=== PATIENT | female | born 1965 | race Caucasian/White ===

== ENCOUNTER 2018-12-12 15:51 | Inpatient (IN) | payer BC, MEDICAID ==
[~2018-12-12] VITALS: Ht 162.6 cm; Wt 93.2 kg
[~2018-12-12 15:51] MED LIST: ALBU8.5H8 IH; PRED50TA PO; SYN0.088T PO
[2018-12-12] MEDS ORDERED: ipratropium/albuterol 3ml nebule NEB ONE (16:30)
[2018-12-12] MEDS ORDERED: normal saline 1000ML IV soln IVB ONE (16:30)
[2018-12-12] MEDS ORDERED: methylPREDNISolone sod succ 125mg/2ml vial IV ONE (16:30)
[2018-12-12 17:14] LABS: BASOPHILS # (AUTO) 0.1 X10'3 (0-0.2); BASOPHILS % (AUTO) 0.5 % (0-1); EOSINOPHILS # (AUTO) 0.7 X10'3 (0-0.9); EOSINOPHILS % (AUTO) 5.7 % (0-6); HEMATOCRIT 45.3 % (35.0-45.0); HEMOGLOBIN 15.1 g/dl (12.0-16.0); LYMPHOCYTES # (AUTO) 3.2 X10'3 (1.1-4.8); MEAN CORPUSCULAR HEMOGLOBIN 28.4 PG (27.0-31.0); MEAN CORPUSCULAR HGB CONC 33.3 g/dL (33.0-36.5); MEAN CORPUSCULAR VOLUME 85.4 FL (78-98); MEAN PLATELET VOLUME 7.3 FL (7.4-10.4); MONOCYTES # (AUTO) 0.7 X10'3 (0-0.9); MONOCYTES % (AUTO) 6.3 % (2-12); NEUTROPHILS # (AUTO) 7.2 X10'3 (1.8-7.7); NEUTROPHILS % (AUTO) 60.5 % (42-75); PLATELET COUNT 399 X10'3 (140-440); RED BLOOD COUNT 5.31 X10'6 (4.20-5.60); RED CELL DISTRIBUTION WIDTH 14.3 % (11.5-14.5); WHITE BLOOD COUNT 11.9 X10'3 (4.5-11.0)
[2018-12-12 17:24] LABS: ALANINE AMINOTRANSFERASE 27 U/L (12-78); ALBUMIN 3.8 G/DL (3.4-5.0); ALBUMIN/GLOBULIN RATIO 0.9 (1.1-1.5); ALKALINE PHOSPHATASE 126 IU/L (46-116); ANION GAP 13 (8-16); ASPARTATE AMINO TRANSFERASE 15 U/L (10-37); BILIRUBIN,TOTAL 0.4 MG/DL (0.1-1.0); BLOOD UREA NITROGEN 16 MG/DL (7-18); BUN/CREATININE RATIO 25.8 (6.6-38.0); CALCIUM 9.5 MG/DL (8.5-10.1); CHLORIDE 105 MMOL/L (99-107); CREATININE 0.62 MG/DL (0.40-0.90); GLUCOSE 96 MG/DL (70-104); POTASSIUM 3.5 MMOL/L (3.5-5.1); SODIUM 141 MMOL/L (135-145); eGFR > 90 ML/MIN
[2018-12-12] MEDS ORDERED: ERGO500054 PO (17:49)
[2018-12-12] MEDS ORDERED: ALBU18HF2 IH (17:49)
[2018-12-12] MEDS ORDERED: MONT10TA24 PO (17:49)
[2018-12-12] MEDS ORDERED: LEVO137T2 PO (17:49)
[2018-12-12] MEDS ORDERED: ESTR10TA9 VG (17:49)
[2018-12-12] MEDS ORDERED: ROSU10TA27 PO (17:49)
[2018-12-12] MEDS ORDERED: BUDE10.2 IH (17:49)
[2018-12-12] MEDS ORDERED: TIOT4MIS2 IH (17:49)
[2018-12-12] MEDS ORDERED: HYDR-3965 PO (17:49)
[2018-12-12] MEDS ORDERED: IPRA3AMP31 IH (17:49)
[2018-12-12] MEDS ORDERED: ondansetron/PF 4mg/2ml inj IV PRN (17:50)
[2018-12-12] MEDS ORDERED: acetaminophen 325mg tablet PO PRN (17:50)
[2018-12-12] MEDS ORDERED: mag hydrox/Alum hydrox/simeth 30ml oral suspension PO PRN (17:50)
[2018-12-12] MEDS ORDERED: magnesium hydroxide 30ml (MOM) UD suspension PO PRN (17:50)
[2018-12-12] MEDS ORDERED: morphine 4 MG/ML inj SYRINge IV PRN ×2 (17:50)
[2018-12-12] MEDS ORDERED: HYDROcodone/acetaminophen 5mg/325mg tablet PO PRN (17:55)
[2018-12-12] MEDS: levoFLOXACIN-Levaquin 750MG/D5 150 ML IV SCH (19:10)
[2018-12-12] MEDS: oxymetazoline 15 ML nasal spray NS SCH (19:10)
--- NOTE | 2018-12-12 19:19 | NUR ---
Patient complaining of lack of television in her room in the ED. Patient informed that getting a television in her room is not possible at this time. She states, "If I don't get a television or go upstairs soon I'm going to go to [facility]! I have anxiety!"
[2018-12-12] MEDS ORDERED: zolpidem 5mg tablet PO ONE (19:35)
[2018-12-12] MEDS: furosemide 20 MG/2 ML vial IV SCH (20:00)
[2018-12-12] MEDS: budesonide 0.5mg/2ml UD nebule IH SCH (20:59)
[2018-12-12] MEDS: ipratropium 0.5 MG/2.5ML nebule IH SCH (20:59)
--- NOTE | 2018-12-12 21:05 | NUR ---
Patient is highly anxious and agitated stating that she is leaving this hospital at 0900 if she is not in a bed upstairs. She states, "Its inhumane to leave people down here all night! I can't believe this! I used to work at [employer] and this is wrong!" I attempted to de-escalate the patient and re-assure her that our goal is to get her upstairs as soon as we can. She is also frustrated about her medications as the times of some of them are slightly different than her home regiment and she wants them all to be exact. Dr. Sena paged to try to accomodate her request. Patient is also agitated that she will be not be getting her inhaler. I explained to her that we do not have them in house and that she is getting a nebulizer treatment which is as effective, if not more. She is still displeased. Waiting for Dr. Sena to call back.
[2018-12-12] MEDS: montelukast 10mg tablet PO SCH (22:33)
[2018-12-12] MEDS: atorvastatin 20mg tablet PO SCH (22:33)
[2018-12-13] MEDS: methylPREDNISolone sod succ 125mg/2ml vial IV SCH ×4 (00:03→23:18)
--- NOTE | 2018-12-13 00:18 | NUR ---
Entered patient's room to administer solumedrol. Patient seems to be having visual hallucinations and believes that the vitals sign monitor is, "melting. Look there are purple clouds coming out of it." Neither of those things are happening. Patient's vital signs remain stable. Patient has no facial drooping, slurred speech, unilateral weakness, or other visual field changes. Will continue to closely monitor.
[2018-12-13] MEDS: oxymetazoline 15 ML nasal spray NS SCH ×6 (02:08→23:20)
[2018-12-13] MEDS: ipratropium 0.5 MG/2.5ML nebule IH SCH ×4 (02:25→19:51)
--- NOTE | 2018-12-13 02:27 | NUR ---
Patient resting comfortably in bed with no signs of distress. Patient complains of mild nausea. Zofran and crackers given. Patient no longer experiencing visual hallucinations.
[2018-12-13] MEDS: proCHLORperazine 10 MG/2 ml inj IV PRN ×2 (04:32→22:34)
[2018-12-13] MEDS: levoTHYROXINE 112mcg tablet PO SCH (07:46)
[2018-12-13] MEDS: levoTHYROXINE 25mcg tablet PO SCH (07:46)
[2018-12-13] MEDS: levoFLOXACIN-Levaquin 750MG/D5 150 ML IV SCH (07:47)
[2018-12-13] MEDS: furosemide 20 MG/2 ML vial IV SCH ×3 (07:48→20:13)
[2018-12-13] MEDS: enoxaparin 40mg/0.4ml syringe SUBCUT SCH (07:48)
[2018-12-13] MEDS: nitroGLYCERIN 0.4mg/hour patch TD SCH (07:55)
[2018-12-13] MEDS ORDERED: atorvastatin 20mg tablet PO SCH (08:00)
--- NOTE | 2018-12-13 08:45 | NUR ---
Received report from ED RN Jefferson, awaiting patient arrival to unit.
[2018-12-13 09:00] VITALS: BP 137/72
--- NOTE | 2018-12-13 09:00 | NUR ---
Pt arrived to unit in stable condition, 1L O2 via NC. Pt denies complaint. Oriented to room, call light in reach. Bed is low/locked/SRx2. Will continue to monitor.
[2018-12-13] MEDS: budesonide 0.5mg/2ml UD nebule IH SCH ×2 (09:14→19:51)
[2018-12-13 09:49] LABS: ALBUMIN 3.4 G/DL (3.4-5.0); ANION GAP 9 (8-16); BASOPHILS % (AUTO) 0.1 % (0-1); BLOOD UREA NITROGEN 16 MG/DL (7-18); BUN/CREATININE RATIO 20.5 (6.6-38.0); CALCIUM 9.3 MG/DL (8.5-10.1); CHLORIDE 105 MMOL/L (99-107); CREATININE 0.78 MG/DL (0.40-0.90); EOSINOPHILS % (AUTO) 0 % (0-6); GLUCOSE 172 MG/DL (70-104); HEMOGLOBIN 13.6 g/dl (12.0-16.0); LYMPHOCYTES # (AUTO) 1.3 X10'3 (1.1-4.8); LYMPHOCYTES % (AUTO) 10.1 % (21-51); MEAN CORPUSCULAR HEMOGLOBIN 28.3 PG (27.0-31.0); MEAN CORPUSCULAR HGB CONC 33.3 g/dL (33.0-36.5); MONOCYTES # (AUTO) 0.2 X10'3 (0-0.9); MONOCYTES % (AUTO) 1.4 % (2-12); NEUTROPHILS # (AUTO) 11.6 X10'3 (1.8-7.7); NEUTROPHILS % (AUTO) 88.4 % (42-75); PLATELET COUNT 388 X10'3 (140-440); POTASSIUM 4.2 MMOL/L (3.5-5.1); RED BLOOD COUNT 4.82 X10'6 (4.20-5.60); RED CELL DISTRIBUTION WIDTH 13.9 % (11.5-14.5); SODIUM 137 MMOL/L (135-145); TOTAL CARBON DIOXIDE 23.3 MMOL/L (24-32); WHITE BLOOD COUNT 13.2 X10'3 (4.5-11.0); eGFR 77 ML/MIN
[2018-12-13] MEDS: FLU VACC QUAD 2018(5 YR UP)/PF 60 MCG/0.5 ML SYRINGE IM ONE (10:10)
[2018-12-13 11:00] VITALS: BP 126/59
[2018-12-13] MEDS ORDERED: furosemide 20 MG/2 ML vial IV ONE (13:10)
--- NOTE | 2018-12-13 14:59 | NUR ---
PAGER ID: [phone] MESSAGE: [id number] Mike Bower/mary headache, requesting Tylenol, order is for fever only. Urine output 950mL. MARIELLA Leiva #[id number]. Addendum: 12/13/18 at 1515 by Janet Corral RN Received order for tylenol 650mg PO for headache and for IV Lasix 20mg BID.
[2018-12-13 15:00] VITALS: BP 110/54
[2018-12-13] MEDS: acetaminophen 325mg tablet PO PRN ×2 (16:02→22:33)
--- NOTE | 2018-12-13 18:10 | NUR ---
Problems reprioritized. Patient report given, questions answered & plan of care reviewed with MARIELLA Santos.
[2018-12-13 19:00] VITALS: BP 117/67
[2018-12-13] MEDS: lactobacillus rhamnosus 10,000 MMU CELLS/CAPSULE PO SCH (20:13)
[2018-12-13] MEDS: montelukast 10mg tablet PO SCH (21:31)
[2018-12-13] MEDS: atorvastatin 20mg tablet PO SCH (21:32)
[2018-12-13 23:00] VITALS: BP 120/68
[2018-12-14 03:00] VITALS: BP 114/71
[2018-12-14] MEDS: ipratropium 0.5 MG/2.5ML nebule IH SCH ×2 (03:10→09:11)
[2018-12-14 05:46] LABS: BASOPHILS % (AUTO) 0.1 % (0-1); EOSINOPHILS % (AUTO) 0 % (0-6); HEMATOCRIT 41.3 % (35.0-45.0); HEMOGLOBIN 13.7 g/dl (12.0-16.0); LYMPHOCYTES # (AUTO) 1.8 X10'3 (1.1-4.8); LYMPHOCYTES % (AUTO) 8.3 % (21-51); MEAN CORPUSCULAR HEMOGLOBIN 28.4 PG (27.0-31.0); MEAN CORPUSCULAR HGB CONC 33.2 g/dL (33.0-36.5); MEAN CORPUSCULAR VOLUME 85.7 FL (78-98); MEAN PLATELET VOLUME 7.3 FL (7.4-10.4); MONOCYTES # (AUTO) 0.5 X10'3 (0-0.9); MONOCYTES % (AUTO) 2.2 % (2-12); NEUTROPHILS % (AUTO) 89.4 % (42-75); PLATELET COUNT 429 X10'3 (140-440); RED BLOOD COUNT 4.82 X10'6 (4.20-5.60); RED CELL DISTRIBUTION WIDTH 14.1 % (11.5-14.5); WHITE BLOOD COUNT 21.3 X10'3 (4.5-11.0)
[2018-12-14 05:48] LABS: ALBUMIN 3.4 G/DL (3.4-5.0); ANION GAP 6 (8-16); BLOOD UREA NITROGEN 26 MG/DL (7-18); BUN/CREATININE RATIO 26.3 (6.6-38.0); CALCIUM 9.6 MG/DL (8.5-10.1); CHLORIDE 104 MMOL/L (99-107); CREATININE 0.99 MG/DL (0.40-0.90); GLUCOSE 147 MG/DL (70-104); POTASSIUM 4.3 MMOL/L (3.5-5.1); SODIUM 138 MMOL/L (135-145); TOTAL CARBON DIOXIDE 27.8 MMOL/L (24-32); eGFR 58 ML/MIN
[2018-12-14 06:00] VITALS: BP 114/71
--- NOTE | 2018-12-14 06:00 | NUR ---
Patient in room PCU 3014. I have received report from MARIELLA Santos and had the opportunity to ask questions and assume patient care.
--- NOTE | 2018-12-14 06:00 | NUR ---
Patient in room PCU 3014. I have received report from MARIELLA Santos and had the opportunity to ask questions and assume patient care.
--- NOTE | 2018-12-14 06:18 | NUR ---
Problems reprioritized. Patient report given, questions answered & plan of care reviewed with Abbie WOLFF. Addendum: 12/14/18 at 0620 by Danielle Willard RN Amended: Links added.
[2018-12-14] MEDS: levoTHYROXINE 25mcg tablet PO SCH (07:09)
[2018-12-14] MEDS: levoTHYROXINE 112mcg tablet PO SCH (07:09)
[2018-12-14] MEDS: nitroGLYCERIN 0.4mg/hour patch TD SCH (08:00)
[2018-12-14] MEDS: montelukast 10mg tablet PO SCH (08:00)
[2018-12-14] MEDS: enoxaparin 40mg/0.4ml syringe SUBCUT SCH (08:00)
[2018-12-14] MEDS ORDERED: LEVO750T46 PO (08:41)
[2018-12-14] MEDS ORDERED: FURO-150 PO (08:41)
[2018-12-14] MEDS ORDERED: PRED10TA23 PO (08:41)
[2018-12-14] MEDS: budesonide 0.5mg/2ml UD nebule IH SCH (09:11)
[2018-12-14] MEDS: furosemide 20 MG/2 ML vial IV SCH (09:35)
[2018-12-14] MEDS: atorvastatin 20mg tablet PO SCH (09:36)
[2018-12-14] MEDS: lactobacillus rhamnosus 10,000 MMU CELLS/CAPSULE PO SCH (09:36)
[2018-12-14] MEDS: oxymetazoline 15 ML nasal spray NS SCH (09:36)
[2018-12-14] MEDS: methylPREDNISolone sod succ 125mg/2ml vial IV SCH (09:37)
[2018-12-14] MEDS: FLU VACC QUAD 2018(5 YR UP)/PF 60 MCG/0.5 ML SYRINGE IM ONE (10:43)
[2018-12-14 11:00] VITALS: BP 135/87
[2018-12-14] MEDS ORDERED: levoFLOXACIN 750MG TABLET PO SCH (11:00)
--- NOTE | 2018-12-14 11:25 | NUR ---
Pt discharged in stable condition at this time. IV removed, catheter intact. Tele monitor removed. Ambulated to lobby with steady gait, sister is on her way, should arrive shortly. Care relinquished.
== END 2018-12-14 11:55 | disposition home or self-care (01) | DRG 140 ==
LOC: ER 15:51 → PCU 3S 12-13 09:24
PROVIDERS: ADMIT Internal Medicine; ATTEND Internal Medicine
DX: J44.0 Chronic obstructive pulmonary disease with (acute) lower respiratory infection (principal); J96.21 Acute and chronic respiratory failure with hypoxia; I27.81 Cor pulmonale (chronic); E03.9 Hypothyroidism, unspecified; E78.5 Hyperlipidemia, unspecified; J20.9 Acute bronchitis, unspecified; H35.30 Unspecified macular degeneration; J44.1 Chronic obstructive pulmonary disease with (acute) exacerbation; Z79.899 Other long term (current) drug therapy; Z80.1 Family history of malignant neoplasm of trachea, bronchus and lung; Z87.891 Personal history of nicotine dependence; Z90.710 Acquired absence of both cervix and uterus; Z98.891 History of uterine scar from previous surgery; Z23 Encounter for immunization; Z88.5 Allergy status to narcotic agent; Z88.2 Allergy status to sulfonamides
CPT/HCPCS: 36415; 71046; 71250; 80048; 80053; 83605; 83880; 85025; 87040; 87070; 93005; 93306; 94640; 94760; 96365; 96375; 99285; G0378; J0780; J1650; J1940; J1956; J2405; J2930; J7626; Q2037

== ENCOUNTER 2019-01-18 16:28 | Emergency (ER) | payer MEDICAID ==
[~2019-01-18] VITALS: Ht 162.6 cm; Wt 95.0 kg
[~2019-01-18 16:28] MED LIST changes: +ALBU18HF2 IH; -ALBU8.5H8 IH; +BUDE10.2 IH; +ERGO500054 PO; +ESTR10TA9 VG; +FURO-150 PO; +HYDR-3965 PO; +IPRA3AMP31 IH; +LEVO137T2 PO; +LEVO750T46 PO; +MONT10TA24 PO; -PRED50TA PO; +ROSU10TA27 PO; -SYN0.088T PO; +TIOT4MIS2 IH
[2019-01-18 17:05] VITALS: BP 136/97
[2019-01-18] MEDS ORDERED: methylnaltrexone br 12mg/0.6ml inj***SubQ only SQ ONE (18:10)
[2019-01-18] MEDS ORDERED: POLY17PO10 PO (18:16)
== END 2019-01-18 18:38 | disposition home or self-care (01) ==
LOC: ER 16:29
DX: K59.00 Constipation, unspecified (principal); Z90.710 Acquired absence of both cervix and uterus; Z90.89 Acquired absence of other organs; Z98.890 Other specified postprocedural states; Z88.1 Allergy status to other antibiotic agents; Z88.2 Allergy status to sulfonamides; Z88.5 Allergy status to narcotic agent; Z79.899 Other long term (current) drug therapy
CPT/HCPCS: 96372; 99283

== ENCOUNTER 2019-07-19 05:16 | Day surgery (SDC) | payer MEDICAID ==
[2019-07-11 11:10] LABS: BASOPHILS # (AUTO) 0.1 X10'3 (0-0.2); BASOPHILS % (AUTO) 0.5 % (0-1); EOSINOPHILS # (AUTO) 0.4 X10'3 (0-0.9); EOSINOPHILS % (AUTO) 3.8 % (0-6); LYMPHOCYTES # (AUTO) 2.9 X10'3 (1.1-4.8); LYMPHOCYTES % (AUTO) 25.1 % (21-51); MEAN CORPUSCULAR HEMOGLOBIN 29.5 PG (27.0-31.0); MEAN CORPUSCULAR VOLUME 86.7 FL (78-98); MEAN PLATELET VOLUME 7.2 FL (7.4-10.4); MONOCYTES # (AUTO) 0.9 X10'3 (0-0.9); MONOCYTES % (AUTO) 7.5 % (2-12); NEUTROPHILS # (AUTO) 7.3 X10'3 (1.8-7.7); NEUTROPHILS % (AUTO) 63.1 % (42-75); PRE OP HEMATOCRIT 45.8 % (35.0-45.0); PRE OP HEMOGLOBIN 15.6 g/dL (12.0-16.0); PRE OP PLATELET COUNT 422 X10'3 (140-440); RED BLOOD COUNT 5.28 X10'6 (4.20-5.60); RED CELL DISTRIBUTION WIDTH 14.5 % (11.5-14.5)
[2019-07-11 11:17] LABS: PRE OP PROTIME 10.3 SECONDS (9.0-12.0)
[2019-07-11 11:28] LABS: ALBUMIN 3.9 G/DL (3.4-5.0); ALBUMIN/GLOBULIN RATIO 0.8 (1.1-1.5); ALKALINE PHOSPHATASE 126 IU/L (46-116); BLOOD UREA NITROGEN 14 MG/DL (7-18); BUN/CREATININE RATIO 18.2 (6.6-38.0); CALCIUM 9.7 MG/DL (8.5-10.1); CHLORIDE 104 MMOL/L (99-107); CREATININE 0.77 MG/DL (0.40-0.90); PRE OP ALT 26 U/L (30-65); PRE OP ANION GAP 11 (8-16); PRE OP AST 14 U/L (10-37); PRE OP BILIRUB, TOTAL 0.4 MG/DL (0.0-1.0); PRE OP GLUCOSE 98 MG/DL (70-104); PRE OP POTASSIUM 3.9 MMOL/L (3.4-5.1); PRE OP SODIUM 139 MMOL/L (135-145); TOTAL CARBON DIOXIDE 24.4 MMOL/L (24-32); TOTAL PROTEIN 8.6 G/DL (6.4-8.2); eGFR 78 ML/MIN
[~2019-07-19] VITALS: Ht 162.6 cm; Wt 94.5 kg
[~2019-07-19 05:16] MED LIST changes: +BUDE0.256 NS; +CALC600T18 PO; -ESTR10TA9 VG; -FURO-150 PO; -IPRA3AMP31 IH; +LEVO5TAB29 PO; -LEVO750T46 PO; -ROSU10TA27 PO; +ROSU10TA28 PO; +cefazolin/dext.iso 2gm/50ml 50 ML IV ONE; +ringers solution, lacted 1,000 ML IV SCH
[2019-07-19 05:30] VITALS: BP 132/73
[2019-07-19] MEDS ORDERED: famotidine 20mg tablet PO ONE (05:30)
[2019-07-19] MEDS ORDERED: cefazolin/dext.iso 2gm/100 ML IV ONE (05:30)
[2019-07-19] MEDS ORDERED: cefazolin/dext.iso 2gm/50ml 50 ML IV ONE (05:30)
[2019-07-19] MEDS ORDERED: LIDOcaine 1% (10mg/ml) 2ml vial ONE (05:45)
[2019-07-19] MEDS ORDERED: BUPIVAcaine/PF 2.5mg/ml (0.25%) 10ml vial ONE (06:05)
[2019-07-19] MEDS ORDERED: LIDOcaine 0.5% (5mg/ml) 50ml vial ONE (07:29)
[2019-07-19] MEDS ORDERED: fentaNYL/PF 50MCG/1 ML 2ML syringe ONE ×2 (07:35→07:52)
[2019-07-19] MEDS ORDERED: midazolam 2 mg/2 ml injection ONE ×2 (07:35→07:45)
[2019-07-19 08:07] VITALS: BP 148/110
--- NOTE | 2019-07-19 08:07 | NUR ---
Received from OR via JESUS , accompanied by Anesthesiologist JOSELINE and report given by Anesthesiolgist. PATIENT WITH DRESSING TO RIGHT WRIST AND HAND THAT IS CDI. VSS. DENIES PAIN. + CAP REFILL AND MOVEMENT. Addendum: 07/19/19 at 0824 by Richard Perez RN, RN Amended: Links added.
[2019-07-19] MEDS ORDERED: ipratropium/albuterol 3ml nebule NEB SCH (08:15)
[2019-07-19 08:17] VITALS: BP 134/99
[2019-07-19] MEDS ORDERED: propofol inj 20 ML IV ONE (08:21)
[2019-07-19] MEDS ORDERED: labetalol 20mg/4ml (5mg/ml) syringe IV ONE (08:21)
[2019-07-19 08:27] VITALS: BP 172/109
[2019-07-19 08:37] VITALS: BP 135/88
[2019-07-19] MEDS ORDERED: meperidine/PF 25mg/ml syringe ONE (08:39)
[2019-07-19] MEDS ORDERED: meperidine/PF 25mg/ml syringe IV ONE (08:40)
[2019-07-19 08:47] VITALS: BP 142/90
--- NOTE | 2019-07-19 08:57 | NUR ---
ALL DC CRITERIA HAS BEEN MET. IV TAKEN OUT WITHOUT COMPLICATIONS. ALL INSTRUCTIONS COVERED AND ALL QUESTIONS ANSWERED. DRESSINGS CDI. OUT VIA WHEELCHAIR TO PERSONAL VEHICLE WHERE PATIENT WAS SECURED IN AND DRIVEN HOME BY FAMILY. ALL QUESTIONS ANSWERED. VSS. DRESSING CDI. PATIENT DRESSED SELF, AMBULATED AND VOIDED AND WAS DRIVEN HOME BY HER SON. Addendum: 07/19/19 at 0910 by Richard Perez RN, RN Amended: Links added.
== END 2019-07-19 08:57 | disposition home or self-care (01) ==
LOC: PAS 05:16
PROVIDERS: ATTEND Orthopaedic Surgery Hand Surgery
DX: M72.0 Palmar fascial fibromatosis [Dupuytren] (principal); E03.9 Hypothyroidism, unspecified; J44.9 Chronic obstructive pulmonary disease, unspecified; K21.9 Gastro-esophageal reflux disease without esophagitis; G89.29 Other chronic pain; E66.9 Obesity, unspecified; Z68.34 Body mass index [BMI] 34.0-34.9, adult; Z87.891 Personal history of nicotine dependence; Z98.890 Other specified postprocedural states; Z88.2 Allergy status to sulfonamides; Z88.5 Allergy status to narcotic agent; Z88.1 Allergy status to other antibiotic agents; Z79.899 Other long term (current) drug therapy; Z86.19 Personal history of other infectious and parasitic diseases; Z79.01 Long term (current) use of anticoagulants
CPT/HCPCS: 26123; 36415; 80053; 85025; 85610; 85730; 93005; 94640; 94760; A6222; J2001; J2175; J2250; J2704; J3010; J3490; J7120; A4215; A6449

== ENCOUNTER 2019-09-09 10:28 | Inpatient (IN) | payer MEDICAID ==
[~2019-09-09] VITALS: Ht 162.6 cm; Wt 94.4 kg
[~2019-09-09 10:28] MED LIST changes: -cefazolin/dext.iso 2gm/50ml 50 ML IV ONE; -ringers solution, lacted 1,000 ML IV SCH
[2019-09-09] MEDS ORDERED: acetaminophen 325mg tablet PO ONE (11:00)
[2019-09-09] MEDS ORDERED: methylPREDNISolone sod succ 125mg/2ml vial IV ONE (11:30)
[2019-09-09] MEDS ORDERED: ipratropium 0.5 MG/2.5ML nebule IH ONE (11:30)
[2019-09-09] MEDS ORDERED: normal saline 1000ML IV soln IVB ONE (11:30)
[2019-09-09] MEDS ORDERED: albuterol 2.5 MG/3 ML nebule CONTNEB PRN (11:30)
[2019-09-09 11:36] LABS: BASOPHILS % (AUTO) 0.4 % (0-1); EOSINOPHILS % (AUTO) 0.2 % (0-6); HEMATOCRIT 41.9 % (35.0-45.0); HEMOGLOBIN 14.2 g/dl (12.0-16.0); LYMPHOCYTES # (AUTO) 1.3 X10'3 (1.1-4.8); LYMPHOCYTES % (AUTO) 20.7 % (21-51); MEAN CORPUSCULAR HEMOGLOBIN 28.8 PG (27.0-31.0); MEAN CORPUSCULAR VOLUME 84.8 FL (78-98); MEAN PLATELET VOLUME 6.8 FL (7.4-10.4); MONOCYTES # (AUTO) 0.4 X10'3 (0-0.9); MONOCYTES % (AUTO) 6.1 % (2-12); NEUTROPHILS # (AUTO) 4.7 X10'3 (1.8-7.7); NEUTROPHILS % (AUTO) 72.6 % (42-75); PLATELET COUNT 312 X10'3 (140-440); RED BLOOD COUNT 4.93 X10'6 (4.20-5.60); WHITE BLOOD COUNT 6.5 X10'3 (4.5-11.0)
[2019-09-09 11:48] LABS: PARTIAL THROMBOPLASTIN TIME 35 SECONDS (22-32)
[2019-09-09 11:50] LABS: ALANINE AMINOTRANSFERASE 32 U/L (12-78); ALBUMIN 3.3 G/DL (3.4-5.0); ALBUMIN/GLOBULIN RATIO 0.9 (1.1-1.5); ALKALINE PHOSPHATASE 85 IU/L (46-116); ANION GAP 9 (8-16); ASPARTATE AMINO TRANSFERASE 25 U/L (10-37); BILIRUBIN,TOTAL 0.3 MG/DL (0.1-1.0); BLOOD UREA NITROGEN 14 MG/DL (7-18); BUN/CREATININE RATIO 14.9 (6.6-38.0); CALCIUM 8.9 MG/DL (8.5-10.1); CHLORIDE 102 MMOL/L (99-107); CREATININE 0.94 MG/DL (0.40-0.90); GLUCOSE 80 MG/DL (70-104); POTASSIUM 3.4 MMOL/L (3.5-5.1); SODIUM 139 MMOL/L (135-145); TOTAL PROTEIN 7.1 G/DL (6.4-8.2); eGFR 62 ML/MIN
[2019-09-09] MEDS ORDERED: azithromycin/NS 500mg/250ml 250 ML IV ONE (13:30)
[2019-09-09] MEDS ORDERED: CefTRIAXone 2gm/D5W 50ml 50 ML IV ONE (13:30)
[2019-09-09] MEDS ORDERED: potassium CL 10mEq/100ml bag 100 ML IV PRN ×2 (13:55)
[2019-09-09] MEDS ORDERED: magnesium Cl slow-release 64mg tablet PO PRN (13:55)
[2019-09-09] MEDS ORDERED: magnesium 2GM in 50ml NS 50 ML IV PRN (13:55)
[2019-09-09] MEDS ORDERED: magnesium 4gm in 100ml NS 100 ML IV PRN (13:55)
[2019-09-09] MEDS ORDERED: potassium Cl 20 mEq SR tablet PO PRN (13:55)
[2019-09-09] MEDS ORDERED: OSEL75CA17 PO (14:15)
[2019-09-09] MEDS ORDERED: CALC500T43 PO (14:15)
[2019-09-09] MEDS: normal saline 1000ml 1,000 ML IV SCH ×2 (15:22→22:41)
[2019-09-09 15:35] LABS: CLARITY,URINE CLEAR (Clear); COLOR,URINE STRAW (Yellow); GLUCOSE, URINE 500 mg/dl (Neg); KETONES,URINE NEGATIVE (Neg); LEUKOCYTE ESTERASE ,URINE NEGATIVE (Neg); NITRITES, URINE NEGATIVE (Neg); OCCULT BLOOD,URINE NEGATIVE (Neg); PH,URINE 5.5 (4.8-8.0); PROTEIN,URINE NEGATIVE (Neg); UROBILINOGEN,URINE 0.2 E.U/dL (0.2-1.0)
[2019-09-09 15:36] LABS: UA COLLECTION TYPE CLN CATCH MIDSTREAM
[2019-09-09 17:50] VITALS: BP 100/64
--- NOTE | 2019-09-09 19:01 | NUR ---
Patient in room [facility] 340. I have received report from MARIELLA Salgado and had the opportunity to ask questions and assume patient care.
--- NOTE | 2019-09-09 19:10 | NUR ---
Spoke to MD to add solumedrol 40mg BID and tessalon pearles for cough.
[2019-09-09] MEDS: ipratropium/albuterol 3ml nebule NEB SCH ×2 (19:29→23:20)
[2019-09-09] MEDS: methylPREDNISolone sod succ/PF 40mg inj. IV SCH (19:46)
[2019-09-09] MEDS: benzonatate 100mg capsule PO PRN (19:46)
[2019-09-09] MEDS: potassium Cl 20 mEq SR tablet PO PRN (19:52)
[2019-09-09] MEDS: K and/or MAG REPLACEMENT MC SCH (19:56)
[2019-09-09] MEDS: heparin, porcine 5000 units/ml vial SQ SCH (19:56)
[2019-09-09] MEDS ORDERED: ipratropium 0.5 MG/2.5ML nebule IH SCH (20:00)
[2019-09-09] MEDS ORDERED: albuterol 2.5 MG/3 ML nebule NEB SCH (20:00)
[2019-09-09 20:02] VITALS: BP 114/62
[2019-09-09] MEDS ORDERED: non-formulary drug (Rosuvastatin Calcium 1 TAB) PO SCH (21:00)
[2019-09-09] MEDS: acetaminophen 325mg tablet PO PRN (21:16)
[2019-09-09] MEDS: montelukast 10mg tablet PO SCH (21:17)
[2019-09-09 23:58] VITALS: BP 114/61
[2019-09-10] MEDS: ipratropium/albuterol 3ml nebule NEB SCH ×6 (02:52→23:20)
[2019-09-10] MEDS: benzonatate 100mg capsule PO PRN ×2 (03:57→15:49)
[2019-09-10 04:50] LABS: BASOPHILS % (AUTO) 0.1 % (0-1); EOSINOPHILS % (AUTO) 0 % (0-6); HEMATOCRIT 36.6 % (35.0-45.0); HEMOGLOBIN 12.5 g/dl (12.0-16.0); LYMPHOCYTES # (AUTO) 0.5 X10'3 (1.1-4.8); LYMPHOCYTES % (AUTO) 11.2 % (21-51); MEAN CORPUSCULAR HEMOGLOBIN 29.2 PG (27.0-31.0); MEAN CORPUSCULAR HGB CONC 34.1 g/dL (33.0-36.5); MEAN CORPUSCULAR VOLUME 85.5 FL (78-98); MONOCYTES # (AUTO) 0.2 X10'3 (0-0.9); MONOCYTES % (AUTO) 4.5 % (2-12); NEUTROPHILS # (AUTO) 3.8 X10'3 (1.8-7.7); NEUTROPHILS % (AUTO) 84.2 % (42-75); PLATELET COUNT 275 X10'3 (140-440); RED BLOOD COUNT 4.27 X10'6 (4.20-5.60); RED CELL DISTRIBUTION WIDTH 14.6 % (11.5-14.5); WHITE BLOOD COUNT 4.5 X10'3 (4.5-11.0)
[2019-09-10 04:58] LABS: ALBUMIN 2.6 G/DL (3.4-5.0); ANION GAP 9 (8-16); BLOOD UREA NITROGEN 13 MG/DL (7-18); BUN/CREATININE RATIO 17.6 (6.6-38.0); CALCIUM 8.1 MG/DL (8.5-10.1); CHLORIDE 109 MMOL/L (99-107); CREATININE 0.74 MG/DL (0.40-0.90); GLUCOSE 176 MG/DL (70-104); MAGNESIUM 1.7 MG/DL (1.5-2.4); POTASSIUM 3.4 MMOL/L (3.5-5.1); SODIUM 142 MMOL/L (135-145); TOTAL CARBON DIOXIDE 23.9 MMOL/L (24-32); eGFR 81 ML/MIN
--- NOTE | 2019-09-10 06:25 | NUR ---
Problems reprioritized. Patient report given, questions answered & plan of care reviewed with MARIELLA Salgado.
--- NOTE | 2019-09-10 06:34 | NUR ---
Patient in room [facility] 340. I have received report from MARIELLA SHORT and had the opportunity to ask questions and assume patient care.
[2019-09-10 07:00] VITALS: BP_SYST 109; BP_SYST 86; BP_DIAS 55; BP_DIAS 58
[2019-09-10 07:15] VITALS: BP 115/74
[2019-09-10] MEDS ORDERED: LORazepam 2 mg/ml vial IV ONE (07:20)
--- NOTE | 2019-09-10 07:30 | NUR ---
AROUND 0700 AIDE CAME TO REPORT PATIENT WAS HAVING A HARD TIME BREATHING, NOTIFIED CHARGE AND RESPIRATORY THERAPIST ON FLOOR, WAS INFORMED PATIENT HAD A DIFFERENT RESPIRATORY THERAPIST AND WAS GIVEN A NUMBER TO CALL, NUMBER WAS CALLED WITH NO RESPONSE AND THEN QUILL REAMER PAGED RT, WHILE THE RESPIRATORY THERAPIST ON FLOOR ASSESSED AND TREATED PATIENT, I GOT A NOT REBREATHER FOR WHEN PATIENT FINISHED TREATMENT AND TOOK VITALS, CALLED DR EPSTEIN, WAS GIVEN ORDERS FOR ATIVAN, CHEST XRAY AND ABGS, QUILL REAMER PAGED RT TWICE FOR ABGS, WHICH AT SOME POINT GOT DISCONTINUED, PATIENT REFUSED ATIVAN, CHEST XRAY TAKEN AWAITING RESULTS
[2019-09-10] MEDS: K and/or MAG REPLACEMENT MC SCH ×2 (08:00→20:00)
[2019-09-10] MEDS ORDERED: CefTRIAXone/D5W-Rocephin 1gm 50 ML IV SCH (08:00)
[2019-09-10] MEDS ORDERED: azithromycin/NS 500mg/250ml 250 ML IV SCH (08:00)
[2019-09-10] MEDS: heparin, porcine 5000 units/ml vial SQ SCH ×2 (08:00→20:00)
[2019-09-10] MEDS: methylPREDNISolone sod succ/PF 40mg inj. IV SCH ×2 (08:03→20:28)
[2019-09-10] MEDS: normal saline 1000ml 1,000 ML IV SCH ×2 (08:03→20:28)
[2019-09-10] MEDS: potassium Cl 20 mEq SR tablet PO PRN (08:04)
[2019-09-10] MEDS: atorvastatin 20mg tablet PO SCH (08:05)
[2019-09-10] MEDS: HYDROcodone/acetaminophen 5mg/325mg tablet PO PRN ×2 (08:06→15:51)
[2019-09-10] MEDS: levoTHYROXINE 112mcg tablet PO SCH (10:20)
[2019-09-10] MEDS: levoTHYROXINE 25mcg tablet PO SCH (10:20)
[2019-09-10 11:00] VITALS: BP 112/62
[2019-09-10] MEDS: ondansetron/PF 4mg/2ml inj IV PRN (11:29)
--- NOTE | 2019-09-10 18:15 | NUR ---
Problems reprioritized. Patient report given, questions answered & plan of care reviewed with HAN RN & LUIS ANTONIO RN.
[2019-09-10 20:00] VITALS: BP 127/77
[2019-09-10] MEDS: montelukast 10mg tablet PO SCH (20:27)
[2019-09-10] MEDS: famotidine 10mg tablet PO SCH (20:28)
[2019-09-10] MEDS ORDERED: magnesium hydroxide 30ml (MOM) UD suspension PO PRN (21:00)
[2019-09-10] MEDS ORDERED: bisacodyl 10mg suppository rectal RC PRN (21:00)
--- NOTE | 2019-09-10 21:03 | NUR ---
Patient having hemoptysis. MD notified. No new orders, chest xray results reviewed with MD. Received order for stool softener, laxative and MOM and increased amount of tessalon pearles for cough.
[2019-09-10] MEDS ORDERED: levoFLOXACIN-Levaquin 750MG/D5 150 ML IV SCH (23:12)
[2019-09-10] MEDS: acetaminophen 325mg tablet PO PRN (23:31)
[2019-09-11] VITALS: BP 146/70
[2019-09-11] MEDS: VANCOmycin 1250MG/NS 250ml Bag 250 ML IV SCH ×3 (00:02→23:26)
[2019-09-11] MEDS: ipratropium/albuterol 3ml nebule NEB SCH ×6 (03:02→23:22)
[2019-09-11] MEDS: normal saline 1000ml 1,000 ML IV SCH (06:08)
[2019-09-11] MEDS: ondansetron/PF 4mg/2ml inj IV PRN (06:11)
--- NOTE | 2019-09-11 06:47 | NUR ---
Problems reprioritized. Patient report given, questions answered & plan of care reviewed with MARIELLA Torres.
--- NOTE | 2019-09-11 06:47 | NUR ---
Patient in room [facility] 340. I have received report from MARIELLA SHORT and had the opportunity to ask questions and assume patient care.
[2019-09-11 07:00] VITALS: BP 121/65
[2019-09-11] MEDS: levoTHYROXINE 112mcg tablet PO SCH (07:31)
[2019-09-11] MEDS: levoTHYROXINE 25mcg tablet PO SCH (07:31)
[2019-09-11] MEDS: docusate sod 100mg capsule PO SCH ×2 (07:32→19:31)
[2019-09-11] MEDS: levoFLOXACIN-Levaquin 750MG/D5 150 ML IV SCH (07:32)
[2019-09-11] MEDS: methylPREDNISolone sod succ/PF 40mg inj. IV SCH ×2 (07:32→19:31)
[2019-09-11] MEDS: atorvastatin 20mg tablet PO SCH (07:32)
[2019-09-11] MEDS: sennosides/docusate sodium tablet PO SCH ×2 (07:32→19:31)
[2019-09-11] MEDS: K and/or MAG REPLACEMENT MC SCH ×2 (08:00→20:00)
[2019-09-11] MEDS: heparin, porcine 5000 units/ml vial SQ SCH ×2 (08:00→20:00)
[2019-09-11 09:17] LABS: BASOPHILS % (AUTO) 0.1 % (0-1); EOSINOPHILS % (AUTO) 0 % (0-6); HEMATOCRIT 37.4 % (35.0-45.0); HEMOGLOBIN 12.4 g/dl (12.0-16.0); LYMPHOCYTES # (AUTO) 0.9 X10'3 (1.1-4.8); LYMPHOCYTES % (AUTO) 9.7 % (21-51); MEAN CORPUSCULAR HEMOGLOBIN 28.6 PG (27.0-31.0); MEAN CORPUSCULAR HGB CONC 33.2 g/dL (33.0-36.5); MEAN CORPUSCULAR VOLUME 85.9 FL (78-98); MONOCYTES # (AUTO) 0.3 X10'3 (0-0.9); MONOCYTES % (AUTO) 3.5 % (2-12); NEUTROPHILS # (AUTO) 8.1 X10'3 (1.8-7.7); NEUTROPHILS % (AUTO) 86.7 % (42-75); PLATELET COUNT 285 X10'3 (140-440); RED BLOOD COUNT 4.36 X10'6 (4.20-5.60); RED CELL DISTRIBUTION WIDTH 14.9 % (11.5-14.5); WHITE BLOOD COUNT 9.3 X10'3 (4.5-11.0)
[2019-09-11 09:38] LABS: ALBUMIN 2.7 G/DL (3.4-5.0); ANION GAP 7 (8-16); BLOOD UREA NITROGEN 11 MG/DL (7-18); BUN/CREATININE RATIO 15.3 (6.6-38.0); CALCIUM 7.9 MG/DL (8.5-10.1); CHLORIDE 106 MMOL/L (99-107); CREATININE 0.72 MG/DL (0.40-0.90); GLUCOSE 188 MG/DL (70-104); MAGNESIUM 2.1 MG/DL (1.5-2.4); POTASSIUM 3.9 MMOL/L (3.5-5.1); SODIUM 139 MMOL/L (135-145); TOTAL CARBON DIOXIDE 26.1 MMOL/L (24-32); eGFR 84 ML/MIN
[2019-09-11] MEDS: benzonatate 100mg capsule PO PRN ×2 (10:28→21:11)
[2019-09-11 11:52] VITALS: BP 129/55
[2019-09-11] MEDS: HYDROcodone/acetaminophen 5mg/325mg tablet PO PRN (16:23)
--- NOTE | 2019-09-11 18:38 | NUR ---
Patient in room [facility] 340. I have received report from MARIELLA SHORT and had the opportunity to ask questions and assume patient care.
--- NOTE | 2019-09-11 18:48 | NUR ---
Patient in room [facility] 340. I have received report from MARIELLA Torres and had the opportunity to ask questions and assume patient care.
[2019-09-11] MEDS: lactobacillus rhamnosus 10,000 MMU CELLS/CAPSULE PO SCH (19:31)
[2019-09-11 20:00] VITALS: BP 131/71
[2019-09-11] MEDS: montelukast 10mg tablet PO SCH (21:10)
[2019-09-11] MEDS: famotidine 10mg tablet PO SCH (21:10)
[2019-09-11] MEDS: zolpidem 5mg tablet PO PRN (23:25)
[2019-09-12] VITALS: BP 134/74
[2019-09-12] MEDS: ipratropium/albuterol 3ml nebule NEB SCH ×6 (03:21→23:36)
[2019-09-12] MEDS: benzonatate 100mg capsule PO PRN ×2 (05:23→22:27)
[2019-09-12 05:29] LABS: BASOPHILS % (AUTO) 0.2 % (0-1); EOSINOPHILS % (AUTO) 0 % (0-6); HEMATOCRIT 36.3 % (35.0-45.0); HEMOGLOBIN 12.5 g/dl (12.0-16.0); LYMPHOCYTES # (AUTO) 1.3 X10'3 (1.1-4.8); LYMPHOCYTES % (AUTO) 13.9 % (21-51); MEAN CORPUSCULAR HEMOGLOBIN 29.2 PG (27.0-31.0); MEAN CORPUSCULAR HGB CONC 34.4 g/dL (33.0-36.5); MEAN PLATELET VOLUME 7.1 FL (7.4-10.4); MONOCYTES # (AUTO) 0.8 X10'3 (0-0.9); MONOCYTES % (AUTO) 8.2 % (2-12); NEUTROPHILS # (AUTO) 7.5 X10'3 (1.8-7.7); NEUTROPHILS % (AUTO) 77.7 % (42-75); PLATELET COUNT 294 X10'3 (140-440); RED BLOOD COUNT 4.27 X10'6 (4.20-5.60); RED CELL DISTRIBUTION WIDTH 14.5 % (11.5-14.5); WHITE BLOOD COUNT 9.6 X10'3 (4.5-11.0)
[2019-09-12 05:56] LABS: ALBUMIN 2.6 G/DL (3.4-5.0); ANION GAP 8 (8-16); BLOOD UREA NITROGEN 12 MG/DL (7-18); BUN/CREATININE RATIO 18.8 (6.6-38.0); CHLORIDE 105 MMOL/L (99-107); CREATININE 0.64 MG/DL (0.40-0.90); GLUCOSE 142 MG/DL (70-104); MAGNESIUM 2.1 MG/DL (1.5-2.4); POTASSIUM 4.2 MMOL/L (3.5-5.1); SODIUM 140 MMOL/L (135-145); TOTAL CARBON DIOXIDE 26.8 MMOL/L (24-32); eGFR > 90 ML/MIN
--- NOTE | 2019-09-12 06:44 | NUR ---
Problems reprioritized. Patient report given, questions answered & plan of care reviewed with MARIELLA Torres.
[2019-09-12 07:00] VITALS: BP 137/86
[2019-09-12] MEDS: levoTHYROXINE 112mcg tablet PO SCH (07:00)
[2019-09-12] MEDS: levoTHYROXINE 25mcg tablet PO SCH (07:00)
[2019-09-12] MEDS: levoFLOXACIN-Levaquin 750MG/D5 150 ML IV SCH (07:25)
[2019-09-12] MEDS: methylPREDNISolone sod succ/PF 40mg inj. IV SCH ×2 (07:25→22:20)
[2019-09-12] MEDS: lactobacillus rhamnosus 10,000 MMU CELLS/CAPSULE PO SCH ×2 (07:26→22:22)
[2019-09-12] MEDS: atorvastatin 20mg tablet PO SCH (07:26)
[2019-09-12] MEDS: docusate sod 100mg capsule PO SCH ×2 (07:26→22:22)
[2019-09-12] MEDS: sennosides/docusate sodium tablet PO SCH ×2 (07:26→22:21)
[2019-09-12] MEDS: heparin, porcine 5000 units/ml vial SQ SCH ×2 (07:27→20:00)
[2019-09-12] MEDS: K and/or MAG REPLACEMENT MC SCH ×2 (08:00→19:21)
--- NOTE | 2019-09-12 08:00 | NUR ---
Patient in room [facility] 340. I have received report from Roberto SHORT RN and had the opportunity to ask questions and assume patient care.
[2019-09-12] MEDS: ondansetron/PF 4mg/2ml inj IV PRN (08:46)
[2019-09-12 11:00] VITALS: BP 122/70
[2019-09-12] MEDS ORDERED: proCHLORperazine 10 MG/2 ml inj IV PRN (11:10)
[2019-09-12] MEDS ORDERED: VANCOMYCIN LEVEL IV ONE (11:30)
[2019-09-12] MEDS: VANCOmycin 1250MG/NS 250ml Bag 250 ML IV SCH ×2 (12:12→23:49)
[2019-09-12 18:00] VITALS: BP 130/71
--- NOTE | 2019-09-12 19:01 | NUR ---
Patient in room [facility] 340. I have received report from Jimmy RN and MARIELLA Torres and had the opportunity to ask questions and assume patient care.
--- NOTE | 2019-09-12 19:08 | NUR ---
Problems reprioritized. Patient report given, questions answered & plan of care reviewed with MARIELLA Yusuf.
[2019-09-12] MEDS: montelukast 10mg tablet PO SCH (22:21)
[2019-09-12] MEDS: famotidine 10mg tablet PO SCH (22:21)
[2019-09-13] VITALS: BP 134/71
[2019-09-13] MEDS: ipratropium/albuterol 3ml nebule NEB SCH ×6 (04:06→23:09)
[2019-09-13 06:15] LABS: BASOPHILS % (AUTO) 0.2 % (0-1); EOSINOPHILS % (AUTO) 0 % (0-6); HEMATOCRIT 38.1 % (35.0-45.0); LYMPHOCYTES # (AUTO) 1.5 X10'3 (1.1-4.8); LYMPHOCYTES % (AUTO) 17.3 % (21-51); MEAN CORPUSCULAR HEMOGLOBIN 29.3 PG (27.0-31.0); MEAN CORPUSCULAR HGB CONC 34.1 g/dL (33.0-36.5); MEAN CORPUSCULAR VOLUME 85.9 FL (78-98); MEAN PLATELET VOLUME 7.3 FL (7.4-10.4); MONOCYTES # (AUTO) 0.5 X10'3 (0-0.9); MONOCYTES % (AUTO) 6.3 % (2-12); NEUTROPHILS # (AUTO) 6.5 X10'3 (1.8-7.7); NEUTROPHILS % (AUTO) 76.2 % (42-75); PLATELET COUNT 328 X10'3 (140-440); RED BLOOD COUNT 4.44 X10'6 (4.20-5.60); RED CELL DISTRIBUTION WIDTH 15.1 % (11.5-14.5); WHITE BLOOD COUNT 8.6 X10'3 (4.5-11.0)
[2019-09-13 06:21] LABS: ALBUMIN 2.8 G/DL (3.4-5.0); ANION GAP 10 (8-16); BLOOD UREA NITROGEN 18 MG/DL (7-18); BUN/CREATININE RATIO 25.7 (6.6-38.0); CALCIUM 8.1 MG/DL (8.5-10.1); CHLORIDE 104 MMOL/L (99-107); GLUCOSE 142 MG/DL (70-104); MAGNESIUM 2.1 MG/DL (1.5-2.4); POTASSIUM 3.9 MMOL/L (3.5-5.1); SODIUM 140 MMOL/L (135-145); TOTAL CARBON DIOXIDE 25.9 MMOL/L (24-32); eGFR 87 ML/MIN
[2019-09-13 07:00] VITALS: BP 129/71
--- NOTE | 2019-09-13 07:02 | NUR ---
Problems reprioritized. Patient report given, questions answered & plan of care reviewed with MARIELLA Parish.
[2019-09-13] MEDS: ondansetron/PF 4mg/2ml inj IV PRN (07:43)
[2019-09-13] MEDS: heparin, porcine 5000 units/ml vial SQ SCH ×2 (08:00→20:00)
[2019-09-13] MEDS: K and/or MAG REPLACEMENT MC SCH ×2 (08:00→20:00)
[2019-09-13] MEDS: levoFLOXACIN-Levaquin 750MG/D5 150 ML IV SCH (09:24)
[2019-09-13] MEDS: levoTHYROXINE 112mcg tablet PO SCH (09:29)
[2019-09-13] MEDS: levoTHYROXINE 25mcg tablet PO SCH (09:29)
[2019-09-13] MEDS: sennosides/docusate sodium tablet PO SCH ×2 (09:30→21:27)
[2019-09-13] MEDS: docusate sod 100mg capsule PO SCH ×2 (09:30→21:28)
[2019-09-13] MEDS: lactobacillus rhamnosus 10,000 MMU CELLS/CAPSULE PO SCH ×2 (09:31→21:28)
[2019-09-13] MEDS: methylPREDNISolone sod succ/PF 40mg inj. IV SCH ×2 (09:31→21:28)
[2019-09-13] MEDS: atorvastatin 20mg tablet PO SCH (09:31)
[2019-09-13 11:00] VITALS: BP 126/79
[2019-09-13] MEDS: VANCOmycin 1250MG/NS 250ml Bag 250 ML IV SCH ×3 (11:32→19:30)
--- NOTE | 2019-09-13 12:36 | NUR ---
Initial: Pt admit with PNA. Pt reports feeling a bit better but continues to feel SOB per MD notes. Pt on regular diet documented with some 50% PO intake however overall 75-100% meeting nutrient needs. Pt documented with nausea today, receiving Zofran PRN. LBM 09/12. No edema or wounds. No nutrition diagnosis at this time. Will continue to follow. Recommendations: 1) Continue regular diet 2) Monitor need for ONS/additional protein 3) Routine bowel care 4) Wt per rx Addendum: 09/13/19 at [address] Amended: Links added.
[2019-09-13 18:00] VITALS: BP 137/64
--- NOTE | 2019-09-13 20:05 | NUR ---
Problems reprioritized. Patient report given, questions answered & plan of care reviewed with Madelin Littlejohn RN.
[2019-09-13] MEDS: famotidine 10mg tablet PO SCH (21:27)
[2019-09-13] MEDS: montelukast 10mg tablet PO SCH (21:28)
[2019-09-14 00:27] VITALS: BP 141/68
[2019-09-14] MEDS: zolpidem 5mg tablet PO PRN ×2 (00:28→20:52)
[2019-09-14] MEDS: VANCOmycin 1250MG/NS 250ml Bag 250 ML IV SCH ×2 (01:29→08:10)
[2019-09-14] MEDS: ipratropium/albuterol 3ml nebule NEB SCH ×6 (03:03→23:36)
--- NOTE | 2019-09-14 06:32 | NUR ---
Patient in room [facility] 340. I have received report from MARIELLA Yusuf and had the opportunity to ask questions and assume patient care.
--- NOTE | 2019-09-14 06:45 | NUR ---
Problems reprioritized. Patient report given, questions answered & plan of care reviewed with MARIELLA Meyer.
[2019-09-14 07:04] VITALS: BP 129/66
[2019-09-14] MEDS: K and/or MAG REPLACEMENT MC SCH ×2 (07:13→20:00)
[2019-09-14] MEDS: heparin, porcine 5000 units/ml vial SQ SCH ×2 (07:14→20:00)
[2019-09-14] MEDS: docusate sod 100mg capsule PO SCH ×2 (07:28→20:52)
[2019-09-14] MEDS: lactobacillus rhamnosus 10,000 MMU CELLS/CAPSULE PO SCH ×2 (07:28→20:52)
[2019-09-14] MEDS: sennosides/docusate sodium tablet PO SCH ×2 (07:28→20:52)
[2019-09-14] MEDS: methylPREDNISolone sod succ/PF 40mg inj. IV SCH ×2 (07:28→20:51)
[2019-09-14] MEDS: atorvastatin 20mg tablet PO SCH (07:28)
[2019-09-14] MEDS ORDERED: VANCOMYCIN LEVEL IV ONE (07:30)
[2019-09-14] MEDS: ondansetron/PF 4mg/2ml inj IV PRN (07:31)
--- NOTE | 2019-09-14 07:39 | NUR ---
Patient stated that she will not take her Synthroid this morning because she feels she can not have it only 30 minutes before breakfast because her stomach won't be empty enough. Patient was educated about taking medication on an empty stomach and that if she takes them now she will be fine by the time breakfast comes. Patient disagreed and wants to take the Synthroid 2 hours after breakfast. Patient also stated that she wants to take her PRN Tessalon Perles but only wants to take one of the caps. Patient educated that I can not just administer one due to the fact that the order is for 2 caps, patient informed that an attempt to get an order for one cap will be made. Will continue to monitor patient.
[2019-09-14 07:57] LABS: BASOPHILS % (AUTO) 0.4 % (0-1); EOSINOPHILS % (AUTO) 0.2 % (0-6); HEMATOCRIT 40.4 % (35.0-45.0); HEMOGLOBIN 13.6 g/dl (12.0-16.0); LYMPHOCYTES # (AUTO) 2.6 X10'3 (1.1-4.8); LYMPHOCYTES % (AUTO) 22.8 % (21-51); MEAN CORPUSCULAR HEMOGLOBIN 28.5 PG (27.0-31.0); MEAN CORPUSCULAR HGB CONC 33.7 g/dL (33.0-36.5); MEAN CORPUSCULAR VOLUME 84.7 FL (78-98); MEAN PLATELET VOLUME 6.7 FL (7.4-10.4); MONOCYTES # (AUTO) 0.8 X10'3 (0-0.9); MONOCYTES % (AUTO) 7.1 % (2-12); NEUTROPHILS # (AUTO) 7.8 X10'3 (1.8-7.7); NEUTROPHILS % (AUTO) 69.5 % (42-75); PLATELET COUNT 422 X10'3 (140-440); RED BLOOD COUNT 4.77 X10'6 (4.20-5.60); RED CELL DISTRIBUTION WIDTH 14.9 % (11.5-14.5); WHITE BLOOD COUNT 11.2 X10'3 (4.5-11.0)
[2019-09-14 08:13] LABS: ANION GAP 11 (8-16); BLOOD UREA NITROGEN 16 MG/DL (7-18); BUN/CREATININE RATIO 21.9 (6.6-38.0); CALCIUM 8.3 MG/DL (8.5-10.1); CHLORIDE 105 MMOL/L (99-107); CREATININE 0.73 MG/DL (0.40-0.90); GLUCOSE 104 MG/DL (70-104); MAGNESIUM 2.1 MG/DL (1.5-2.4); SODIUM 140 MMOL/L (135-145); TOTAL CARBON DIOXIDE 24.5 MMOL/L (24-32); eGFR 83 ML/MIN
[2019-09-14 08:17] LABS: VANCOMYCIN,TROUGH 21.3 UG/ML (6.0-14.0)
[2019-09-14 08:44] LABS: TOTAL CELLS COUNTED 100
[2019-09-14 08:57] LABS: PLATELET ESTIMATE NORMAL; POLYCHROMASIA FEW
[2019-09-14] MEDS: levoTHYROXINE 25mcg tablet PO SCH (10:15)
[2019-09-14] MEDS: levoTHYROXINE 112mcg tablet PO SCH (10:15)
[2019-09-14] MEDS: levoFLOXACIN 750MG TABLET PO SCH (10:15)
[2019-09-14] MEDS ORDERED: benzonatate 100mg capsule PO PRN (10:55)
[2019-09-14 11:15] VITALS: BP 137/91
--- NOTE | 2019-09-14 15:17 | NUR ---
O2 Sat at rest on room air: 89% If O2 Sat did not drop below 89% on room air,ambulate patient on room air. O2 Sat while ambulating on room air: 88% Recovery O2 Sat while ambulating on 1.0 LPM: 90%
[2019-09-14] MEDS: vancomycin/NS 1 GM ADD-VANTAGE 250 ML IV SCH ×2 (16:42→23:39)
[2019-09-14 18:00] VITALS: BP 128/79
--- NOTE | 2019-09-14 18:20 | NUR ---
Problems reprioritized. Patient report given, questions answered & plan of care reviewed with Indy Putnam RN.
--- NOTE | 2019-09-14 18:30 | NUR ---
Patient in room [facility] 340. I have received report from DANIELA WOLFF and had the opportunity to ask questions and assume patient care.
[2019-09-14] MEDS: famotidine 10mg tablet PO SCH (20:52)
[2019-09-14] MEDS: benzonatate 100mg capsule PO PRN (20:52)
[2019-09-14] MEDS: montelukast 10mg tablet PO SCH (20:52)
[2019-09-15] VITALS: BP 127/69
[2019-09-15] MEDS: ipratropium/albuterol 3ml nebule NEB SCH ×3 (03:41→11:37)
[2019-09-15] MEDS: levoTHYROXINE 112mcg tablet PO SCH (05:47)
[2019-09-15] MEDS: levoTHYROXINE 25mcg tablet PO SCH (05:47)
--- NOTE | 2019-09-15 06:32 | NUR ---
Patient in room [facility] 340. I have received report from Dipak WOLFF and had the opportunity to ask questions and assume patient care.
--- NOTE | 2019-09-15 07:07 | NUR ---
Problems reprioritized. Patient report given, questions answered & plan of care reviewed with Jodie WOLFF.
[2019-09-15 07:20] VITALS: BP 107/62
[2019-09-15] MEDS: heparin, porcine 5000 units/ml vial SQ SCH (08:00)
[2019-09-15] MEDS: K and/or MAG REPLACEMENT MC SCH (08:00)
[2019-09-15] MEDS: vancomycin/NS 1 GM ADD-VANTAGE 250 ML IV SCH (08:18)
[2019-09-15] MEDS: lactobacillus rhamnosus 10,000 MMU CELLS/CAPSULE PO SCH (08:18)
[2019-09-15] MEDS: methylPREDNISolone sod succ/PF 40mg inj. IV SCH (08:18)
[2019-09-15] MEDS: atorvastatin 20mg tablet PO SCH (08:19)
[2019-09-15] MEDS: docusate sod 100mg capsule PO SCH (08:19)
[2019-09-15] MEDS: sennosides/docusate sodium tablet PO SCH (08:19)
--- NOTE | 2019-09-15 09:51 | NUR ---
page sent to case management ..... Maya COYNE 340B : patient requesting to speak with case management when you get a chance. thank you!
[2019-09-15] MEDS: benzonatate 100mg capsule PO PRN (10:06)
[2019-09-15] MEDS: levoFLOXACIN 750MG TABLET PO SCH (10:06)
[2019-09-15 11:00] VITALS: BP 129/78
[2019-09-15] MEDS ORDERED: PRED10TA23 PO (11:49)
[2019-09-15] MEDS ORDERED: LEVO500T2 PO (11:49)
[2019-09-15] MEDS ORDERED: IPRA3AMP9 IH (11:50)
--- NOTE | 2019-09-15 12:30 | NUR ---
Patient discharged home with son, stable and appropriate. All belongings taken from room. IV removed. New prescriptions e-scripted to pharmacy.
[2019-09-15] MEDS ORDERED: VANCOMYCIN LEVEL IV ONE (15:30)
== END 2019-09-15 12:29 | disposition home or self-care (01) | DRG 140 ==
LOC: ER 10:30 → ED HOLD 13:53 → SUR 3N 16:50
PROVIDERS: ADMIT Internal Medicine; ATTEND Internal Medicine
DX: J44.0 Chronic obstructive pulmonary disease with (acute) lower respiratory infection (principal); J18.9 Pneumonia, unspecified organism; E03.9 Hypothyroidism, unspecified; R04.2 Hemoptysis; E78.5 Hyperlipidemia, unspecified; J44.1 Chronic obstructive pulmonary disease with (acute) exacerbation; Z79.51 Long term (current) use of inhaled steroids; Z80.1 Family history of malignant neoplasm of trachea, bronchus and lung; Z87.891 Personal history of nicotine dependence; Z90.710 Acquired absence of both cervix and uterus; Z98.891 History of uterine scar from previous surgery; Z88.2 Allergy status to sulfonamides; Z88.5 Allergy status to narcotic agent; Z88.1 Allergy status to other antibiotic agents; Z79.899 Other long term (current) drug therapy
CPT/HCPCS: 36415; 71045; 76937; 80048; 80053; 80202; 81003; 83605; 83735; 83880; 84145; 84443; 85025; 85610; 85730; 87040; 87070; 87081; 87502; 87503; 94640; 94667; 94668; 94760; 96374; 99285; G0378; J0456; J0696; J0780; J1644; J1956; J2405; J2920; J2930; J3370; J7030

== ENCOUNTER 2021-05-25 05:57 | Day surgery (SDC) | payer MEDICARE, MEDICAID ==
[2021-05-18 15:54] LABS: BASOPHILS # (AUTO) 0.1 X10'3 (0-0.2); BASOPHILS % (AUTO) 0.7 % (0-1); EOSINOPHILS # (AUTO) 0.2 X10'3 (0-0.9); EOSINOPHILS % (AUTO) 1.5 % (0-6); LYMPHOCYTES # (AUTO) 2.9 X10'3 (1.1-4.8); LYMPHOCYTES % (AUTO) 20.6 % (21-51); MEAN CORPUSCULAR HEMOGLOBIN 29.8 PG (27.0-31.0); MEAN CORPUSCULAR HGB CONC 33.5 g/dL (33.0-36.5); MEAN CORPUSCULAR VOLUME 89.1 FL (78-98); MEAN PLATELET VOLUME 7.1 FL (7.4-10.4); MONOCYTES % (AUTO) 7.3 % (2-12); NEUTROPHILS # (AUTO) 9.8 X10'3 (1.8-7.7); NEUTROPHILS % (AUTO) 69.9 % (42-75); PRE OP HEMATOCRIT 46.2 % (35.0-45.0); PRE OP HEMOGLOBIN 15.5 g/dL (12.0-16.0); PRE OP PLATELET COUNT 424 X10'3 (140-440); RED BLOOD COUNT 5.19 X10'6 (4.20-5.60); RED CELL DISTRIBUTION WIDTH 15.2 % (11.5-14.5)
[2021-05-18 16:05] LABS: PRE OP PROTIME 10.3 SECONDS (9.0-12.0)
[2021-05-18 16:15] LABS: ALBUMIN 4.1 G/DL (3.4-5.0); ALKALINE PHOSPHATASE 124 IU/L (46-116); BLOOD UREA NITROGEN 18 MG/DL (7-18); BUN/CREATININE RATIO 22.2 (6.6-38.0); CALCIUM 9.5 MG/DL (8.5-10.1); CHLORIDE 104 MMOL/L (99-107); CREATININE 0.81 MG/DL (0.40-0.90); PRE OP ALT 29 U/L (30-65); PRE OP ANION GAP 12 (8-16); PRE OP AST 20 U/L (10-37); PRE OP BILIRUB, TOTAL 0.4 MG/DL (0.0-1.0); PRE OP GLUCOSE 89 MG/DL (70-104); PRE OP POTASSIUM 3.9 MMOL/L (3.4-5.1); PRE OP SODIUM 141 MMOL/L (135-145); TOTAL CARBON DIOXIDE 25.4 MMOL/L (24-32); TOTAL PROTEIN 8.3 G/DL (6.4-8.2); eGFR 73 ML/MIN
[2021-05-18 16:27] LABS: CHOL/HDL RATIO 2.5 (0.00-4.99); CHOLESTEROL 184 MG/DL (0-200); HDL CHOLESTEROL 75 MG/DL (35-60); LDL CHOLESTEROL 53 MG/DL (50-100); TRIGLYCERIDES 162 MG/DL (20-135)
[2021-05-18 16:45] LABS: CLARITY,URINE CLEAR (Clear); COLOR,URINE STRAW (Yellow); UA COLLECTION TYPE CLN CATCH MIDSTREAM
[2021-05-18 16:46] LABS: GLUCOSE, URINE NEGATIVE (Neg); KETONES,URINE NEGATIVE (Neg); OCCULT BLOOD,URINE TRACE-LYSED (Neg); PROTEIN,URINE NEGATIVE (Neg)
[2021-05-18 16:47] LABS: LEUKOCYTE ESTERASE ,URINE NEGATIVE (Neg); NITRITES, URINE NEGATIVE (Neg); UROBILINOGEN,URINE 0.2 E.U/dL (0.2-1.0)
[2021-05-18 17:08] LABS: SQUAMOUS EPITHELIAL CELL,UR FEW /LPF (FEW)
[2021-05-18 17:09] LABS: BACTERIA,URINE FEW /HPF (Neg); RBC,URINE NONE SEEN /HPF (0-2); WBC,URINE 0-4 /HPF (0-4)
[~2021-05-25] VITALS: Ht 162.6 cm; Wt 102.7 kg
[2021-05-25] VITALS (11 sets, daily range): BP systolic 131–179; BP diastolic 78–115
[~2021-05-25 05:57] MED LIST changes: +ALBUTEROL NEB; +CALC-932 PO; -CALC600T18 PO; -HYDR-3965 PO; +IPRATROPIUM NEB; +MESSAGE TO NURSING IH ONE; +MIRA50TA PO; -MONT10TA24 PO; +MONT10TA32 PO; +PRED5TAB PO; +albuterol 2.5 MG/3 ML nebule NEB ONE; +diazepam 5mg tablet PO PRN; +famotidine 20mg tablet PO ONE; +oxymetazoline 15 ML nasal spray NS PRN; +ringers solution, lacted 1,000 ML IV SCH
[2021-05-25] MEDS ORDERED: albuterol 2.5 MG/3 ML nebule NEB ONE (06:25)
[2021-05-25] MEDS ORDERED: cocaine 4% topical solution 4ml bottle ONE (06:43)
[2021-05-25] MEDS ORDERED: LEVO112T39 PO (06:43)
[2021-05-25] MEDS ORDERED: cefTAZidime 1gm inj ONE (06:43)
[2021-05-25] MEDS ORDERED: mupirocin 2% ointment 22GM ONE (06:43)
[2021-05-25] MEDS ORDERED: LIDOCAINE 1%/EPI 1:100,000 inj. 10 ML multi-dose vial ONE (06:43)
[2021-05-25] MEDS ORDERED: oxymetazoline 15 ML nasal spray NS ONE (06:44)
[2021-05-25] MEDS ORDERED: ondansetron/PF 4mg/2ml inj ONE (08:04)
[2021-05-25] MEDS ORDERED: labetalol 20mg/4ml (5mg/ml) syringe IV ONE (08:04)
[2021-05-25] MEDS ORDERED: sevoflurane 250ml liquid IH ONE (08:04)
[2021-05-25] MEDS ORDERED: fentaNYL /PF 50mcg/ml 5ml ampule ONE (08:13)
[2021-05-25] MEDS ORDERED: midazolam 1 mg/ML 2ml injection ONE (08:13)
[2021-05-25] MEDS ORDERED: propofol inj 20 ML IV ONE (08:17)
[2021-05-25] MEDS ORDERED: LIDOcaine 2% (20mg/ml) 5ml vial ONE (08:18)
[2021-05-25] MEDS ORDERED: dexamethasone sod phosphate 4mg/ml inj. ONE (08:18)
[2021-05-25] MEDS ORDERED: rocuronium 10mg/ml inj IV ONE (08:40)
[2021-05-25] MEDS ORDERED: methylPREDNISolone acetate 80mg/ml inj**IM only ONE (08:41)
[2021-05-25] MEDS ORDERED: hydrocortisone sod succ/PF 100mg/2ml inj. ONE (08:41)
[2021-05-25] MEDS ORDERED: meperidine/PF 25mg/ml syringe ONE (10:00)
[2021-05-25] MEDS ORDERED: ondansetron/PF 4mg/2ml inj IV PRN (10:05)
[2021-05-25] MEDS ORDERED: proCHLORperazine 10 MG/2 ml inj IV PRN (10:05)
[2021-05-25] MEDS ORDERED: ringers solution, lacted 1,000 ML IV SCH (10:05)
[2021-05-25] MEDS ORDERED: meperidine/PF 25mg/ml syringe IV PRN ×3 (10:05)
--- NOTE | 2021-05-25 10:30 | NUR ---
Received from OR via , accompanied by Anesthesiologist and report given by Anesthesiolgist. PATIENT A&OX4, DENIES PAIN, V/S STABLE BUT HTN, SCD ON , PIV 20G RUE, BILATERAL NASAL PACKING WITH SOME RED DRAINAGE DR MACE AWARE, PATIENT HOB ELEVATED, MEDS GIVEN FOR B/P ON ARRIVAL BY ANESTHESIA.
[2021-05-25] MEDS ORDERED: hydrALAZINE 20mg/ml inj. IV PRN (11:00)
[2021-05-25] MEDS: fentaNYL/PF 50MCG/1 ML 2ML syringe IV PRN ×2 (11:10→11:17)
[2021-05-25] MEDS ORDERED: salt irrigation nasal spray 45 ML SPRAY NS PRN (11:40)
--- NOTE | 2021-05-25 11:50 | NUR ---
PATIENT A&OX4, DENIES PAIN, V/S STABLE BUT HTN, SCD OFF , PIV 20G RUE D/C, BILATERAL NASAL PACKING WITH SOME RED DRAINAGE HAS BEEN MINIMAL FOR THE LAST 30MIN, DR MACE AWARE, PATIENT HOB ELEVATED, MEDS GIVEN FOR B/P EARLIER HAVE RESOLVED HTN, OCEAN SPRAY AND OINTMENT GIVEN PER DR MACE ORDERS. PACKING LEFT IN PER DR MACE VERBAL ORDER. I HAVE REVIEWED D/C INSTRUCTIONS WITH PATIENT AND THEY HAVE VERBALIZED UNDERSTANDING OF INSTRUCTIONS. PATIENT D/C HOME WITH ALL BELONGINGS AND FAMILY GAVE TRANSPORT
== END 2021-05-25 11:50 | disposition home or self-care (01) ==
LOC: PAS 05:57
PROVIDERS: ATTEND Otolaryngology
DX: J34.2 Deviated nasal septum (principal); J34.3 Hypertrophy of nasal turbinates; J32.8 Other chronic sinusitis; J44.9 Chronic obstructive pulmonary disease, unspecified; E03.9 Hypothyroidism, unspecified; F41.9 Anxiety disorder, unspecified; E66.9 Obesity, unspecified; Z68.38 Body mass index [BMI] 38.0-38.9, adult; G89.29 Other chronic pain; Z20.822 Contact with and (suspected) exposure to COVID-19; Z79.899 Other long term (current) drug therapy; Z79.01 Long term (current) use of anticoagulants; Z90.710 Acquired absence of both cervix and uterus; Z98.890 Other specified postprocedural states; Z72.89 Other problems related to lifestyle; Z87.891 Personal history of nicotine dependence; Z88.5 Allergy status to narcotic agent; Z88.2 Allergy status to sulfonamides; Z88.1 Allergy status to other antibiotic agents; Z90.49 Acquired absence of other specified parts of digestive tract; Z86.19 Personal history of other infectious and parasitic diseases
CPT/HCPCS: 30520; 31253; 31259; 31267; 36415; 61782; 80053; 80061; 81001; 82948; 84439; 84443; 85025; 85576; 85610; 85730; 87635; 93005; 94640; 94760; A6402; C9250; C9803; J0360; J0713; J1040; J1100; J1720; J2001; J2175; J2250; J2405; J2704; J3010; J7040; J7120; U0003; U0005; Z7506; Z7508; Z7512; 88304; 88311; A4618; A7000; J3490

== ENCOUNTER 2022-10-12 17:22 | Emergency (ER) | payer MEDICARE, MEDICAID ==
[~2022-10-12] VITALS: Ht 162.6 cm; Wt 90.9 kg
[~2022-10-12 17:22] MED LIST changes: +LEVO112T39 PO; -LEVO137T2 PO; -MESSAGE TO NURSING IH ONE; +MONT-40 PO; -MONT10TA32 PO; -albuterol 2.5 MG/3 ML nebule NEB ONE; -diazepam 5mg tablet PO PRN; -famotidine 20mg tablet PO ONE; -oxymetazoline 15 ML nasal spray NS PRN; -ringers solution, lacted 1,000 ML IV SCH
[2022-10-12 17:26] VITALS: BP 168/92
[2022-10-12] MEDS ORDERED: methylnaltrexone br 12mg/0.6ml inj***SubQ only SQ ONE (18:05)
== END 2022-10-12 18:22 | disposition home or self-care (01) ==
LOC: ER 17:22
DX: K59.00 Constipation, unspecified (principal); J44.9 Chronic obstructive pulmonary disease, unspecified; G89.29 Other chronic pain; M54.9 Dorsalgia, unspecified; Z98.890 Other specified postprocedural states; Z88.2 Allergy status to sulfonamides; Z88.8 Allergy status to other drugs, medicaments and biological substances; Z88.5 Allergy status to narcotic agent; Z79.899 Other long term (current) drug therapy; Z88.1 Allergy status to other antibiotic agents
CPT/HCPCS: 96372; 99283; J2212

== ENCOUNTER 2023-03-05 10:19 | Emergency (ER) | payer MEDICARE, MEDICAID ==
[~2023-03-05] VITALS: Ht 162.6 cm; Wt 86.4 kg
[2023-03-05 10:25] VITALS: BP 133/75
[2023-03-05] MEDS ORDERED: normal saline 1000ML IV soln IVB ONE (11:15)
[2023-03-05] MEDS ORDERED: ketorolac trometh inj. 60 MG/2 ML VIAL IM ONE (11:15)
[2023-03-05] MEDS ORDERED: metoclopramide 5 mg/ml inj IM ONE (11:15)
[2023-03-05] MEDS ORDERED: metoclopramide 10mg tablet PO ONE (12:35)
== END 2023-03-05 14:09 | disposition home or self-care (01) ==
LOC: ER 10:19
DX: R51.9 Headache, unspecified (principal); Z20.822 Contact with and (suspected) exposure to COVID-19; J44.9 Chronic obstructive pulmonary disease, unspecified; Z88.2 Allergy status to sulfonamides; Z88.5 Allergy status to narcotic agent; Z90.710 Acquired absence of both cervix and uterus
CPT/HCPCS: 87811; 96372; 99283; J1885

== ENCOUNTER 2024-01-05 05:48 | Day surgery (SDC) | payer MEDICARE, MEDICAID ==
[2023-12-29 11:59] LABS: BASOPHILS # (AUTO) 0.1 X10'3 (0-0.2); BASOPHILS % (AUTO) 0.8 % (0-1); EOSINOPHILS # (AUTO) 0.3 X10'3 (0-0.9); EOSINOPHILS % (AUTO) 2.9 % (0-6); LYMPHOCYTES # (AUTO) 1.5 X10'3 (1.1-4.8); MEAN CORPUSCULAR HEMOGLOBIN 27.8 PG (27.0-31.0); MEAN CORPUSCULAR VOLUME 84.3 FL (78-98); MEAN PLATELET VOLUME 7.2 FL (7.4-10.4); MONOCYTES # (AUTO) 0.3 X10'3 (0-0.9); NEUTROPHILS # (AUTO) 8.4 X10'3 (1.8-7.7); NEUTROPHILS % (AUTO) 79.3 % (42-75); PRE OP HEMATOCRIT 40.8 % (35.0-45.0); PRE OP HEMOGLOBIN 13.5 g/dL (12.0-16.0); PRE OP PLATELET COUNT 482 X10'3 (140-440); PRE OP WHITE BLOOD COUNT 10.6 10'3 (4.8-10.8); RED BLOOD COUNT 4.84 X10'6 (4.20-5.60); RED CELL DISTRIBUTION WIDTH 17.1 % (11.5-14.5)
[2023-12-29 12:13] LABS: ALBUMIN 3.3 G/DL (3.4-5.0); ALBUMIN/GLOBULIN RATIO 0.7 (1.1-1.5); ALKALINE PHOSPHATASE 94 IU/L (46-116); BLOOD UREA NITROGEN 11 MG/DL (7-18); BUN/CREATININE RATIO 13.3 (10.0-20.0); CALCIUM 9.5 MG/DL (8.5-10.1); CHLORIDE 103 MMOL/L (99-107); CREATININE 0.83 MG/DL (0.40-0.90); PRE OP ALT 28 U/L (30-65); PRE OP ANION GAP 12 (8-16); PRE OP AST 18 U/L (10-37); PRE OP BILIRUB, TOTAL 0.3 MG/DL (0.0-1.0); PRE OP GLUCOSE 103 MG/DL (70-104); PRE OP SODIUM 140 MMOL/L (135-145); TOTAL CARBON DIOXIDE 25.2 MMOL/L (24-32); TOTAL PROTEIN 8.1 G/DL (6.4-8.2); eGFR 70 ML/MIN
[~2024-01-05] VITALS: Ht 162.6 cm; Wt 97.0 kg
[2024-01-05] VITALS (26 sets, daily range): BP systolic 115–146; BP diastolic 61–90; PULSE 64–96; RESP 13–25; TEMP 97.2–98.1; O2SAT 89–99
[2024-01-05] MEDS: DOCUMENT DATE & TIME OF BETA-BLOCKER PO ONE (05:30)
[2024-01-05] MEDS: famotidine 20mg tablet PO ONE (06:50)
[2024-01-05] MEDS: ringers solution, lacted 1,000 ML IV SCH ×2 (06:51→07:35)
[2024-01-05] MEDS ORDERED: fentaNYL/PF 50MCG/1 ML 2ML syringe ONE (07:28)
[2024-01-05] MEDS ORDERED: MIDAZolam 1 MG/ML 5ML VIAL ONE (07:29)
[2024-01-05] MEDS ORDERED: rocuronium 10mg/ml inj IV ONE (07:31)
[2024-01-05] MEDS ORDERED: dexamethasone sod phosphate 4mg/ml inj. ONE (07:31)
[2024-01-05] MEDS ORDERED: LIDOcaine 2% (20mg/ml) 5ml vial ONE (07:31)
[2024-01-05] MEDS ORDERED: ondansetron/PF 4mg/2ml inj ONE (07:31)
[2024-01-05] MEDS ORDERED: propofol inj 20 ML IV ONE (07:31)
[2024-01-05] MEDS ORDERED: labetalol 20mg/4ml (5mg/ml) syringe IV PRN (07:35)
[2024-01-05] MEDS ORDERED: hydrALAZINE 20mg/ml inj. IV PRN (07:35)
[2024-01-05] MEDS ORDERED: fentaNYL/PF 50MCG/1 ML 2ML syringe IV PRN (07:35)
[2024-01-05] MEDS ORDERED: ondansetron/PF 4mg/2ml inj IV PRN (07:35)
[2024-01-05] MEDS ORDERED: meperidine/PF 25mg/ml syringe IV PRN (07:35)
[2024-01-05] MEDS ORDERED: sevoflurane 250ml liquid IH ONE (07:38)
[2024-01-05] MEDS ORDERED: acetaminophen 1,000mg/100ml IV 100 ML IV ONE (08:01)
[2024-01-05] MEDS: meperidine/PF 25mg/ml syringe IV PRN (09:39)
[2024-01-05] MEDS: HYDROcodone/acetaminophen 10/325mg tab PO PRN (10:20)
[2024-01-05] MEDS: fentaNYL/PF 50MCG/1 ML 2ML syringe IV PRN (10:42)
[2024-01-05] MEDS ORDERED: IPRATROP NEB PRN (12:15)
[2024-01-05] MEDS ORDERED: ALBUTERAL NEB PRN (12:15)
[2024-01-05] MEDS ORDERED: ergocalciferol (vit D2) capsule 50,000 UNITS (1,250mcg) CAPSULE PO SCH (12:15)
[2024-01-05] MEDS ORDERED: non-formulary drug (Budesonide/Formoterol Fumarate (Symbicort 160-4.5 Mcg Inhaler) 2 PUFFS IH SCH (20:00)
[2024-01-05] MEDS: budesonide 0.5mg/2ml UD nebule IH SCH (20:02)
[2024-01-05] MEDS: albuterol 2.5 MG/3 ML nebule NEB PRN (20:03)
[2024-01-05] MEDS: calcium carbonate 500mg tablet PO SCH (20:21)
[2024-01-05] MEDS: docusate sod 100mg capsule PO SCH (20:21)
[2024-01-05] MEDS: montelukast 10mg tablet PO SCH (20:21)
[2024-01-06 06:00] VITALS: BP 133/69; PULSE 77; RESP 17; TEMP 97.7; O2SAT 94; O2SAT 96
[2024-01-06] MEDS: levoTHYROXINE 112mcg tablet PO SCH (07:07)
[2024-01-06 07:08] VITALS: RESP 16; O2SAT 97
[2024-01-06 07:38] VITALS: PULSE 82; RESP 18; O2SAT 96
[2024-01-06 07:50] VITALS: PULSE 84; RESP 16
[2024-01-06] MEDS ORDERED: LEVOCETIRIZINE DIHYDROCHLORIDE PO SCH (08:00)
[2024-01-06] MEDS: non-formulary drug (Tiotropium Bromide (Spiriva Respimat) 2 PUFFS) PO SCH (08:00)
[2024-01-06] MEDS: ergocalciferol (vit D2) capsule 50,000 UNITS (1,250mcg) CAPSULE PO SCH (08:00)
== END 2024-01-06 14:00 | disposition home or self-care (01) ==
LOC: PAS 05:48 → ORTHO 4S 11:13 → PAS 01-06 14:00
PROVIDERS: ATTEND Internal Medicine Critical Care Medicine
DX: R91.8 Other nonspecific abnormal finding of lung field (principal); I10 Essential (primary) hypertension; E03.9 Hypothyroidism, unspecified; J44.9 Chronic obstructive pulmonary disease, unspecified; G47.33 Obstructive sleep apnea (adult) (pediatric); E66.9 Obesity, unspecified; I25.2 Old myocardial infarction; I20.9 Angina pectoris, unspecified; Z87.891 Personal history of nicotine dependence; Z79.890 Hormone replacement therapy; Z79.899 Other long term (current) drug therapy; Z90.89 Acquired absence of other organs; Z98.891 History of uterine scar from previous surgery; Z98.890 Other specified postprocedural states; Z68.36 Body mass index [BMI] 36.0-36.9, adult; Z88.1 Allergy status to other antibiotic agents; Z88.2 Allergy status to sulfonamides; Z88.5 Allergy status to narcotic agent; Z88.8 Allergy status to other drugs, medicaments and biological substances; Z80.1 Family history of malignant neoplasm of trachea, bronchus and lung; Z82.49 Family history of ischemic heart disease and other diseases of the circulatory system
CPT/HCPCS: 31653; 36415; 71045; 71250; 80053; 82948; 85025; 87015; 87070; 87102; 87116; 87206; 94640; 94760; J0131; J1100; J2175; J2250; J2405; J2704; J3010; J3490; J7120; Z7512; 31622; 31624; 31625; 31626; 31627; 31628; 31654; A4615; A4618; G0378; J2371; J2710

== ENCOUNTER 2025-05-19 13:35 | Outpatient (CLI) | payer MEDICARE, MEDICAID ==
[~2025-05-19 13:35] MED LIST changes: -MIRA50TA PO; -PRED5TAB PO; -ROSU10TA28 PO
--- NOTE | 2025-05-19 15:05 | RADIOLOGY REPORT ---
CLINICAL INFORMATION: Left shoulder pain. TECHNIQUE: Multisequence multiplanar MRI images of the left shoulder were obtained without contrast. COMPARISON: None FINDINGS: Acromioclavicular joint: Mild edema and fluid within and adjacent to the acromioclavicular joint. There is type 1 acromion. Moderate fluid in the subacromial/subdeltoid bursa. Rotator cuff tendons: Postsurgical changes of prior rotator cuff repair. There is tear of the supraspinatus tendon, portions of which appear full-thickness with some near full-thickness articular surface components at the posterior aspect of the tear, extending up to 1.7 cm in greatest AP dimension and up to 1.6 cm in proximal to distal dimension. Tear extends near the junction of the posterior fibers of the supraspinatus tendon and anterior fibers of the infraspinatus tendon. Subscapularis and teres minor tendons are intact. Biceps tendon: There is biceps tenodesis. The long head biceps tendon is intact at the tenodesis site and more distally. Labrum: Likely fraying of the superior labrum. Bones: No fracture or focal marrow contusion. Muscles: Mild fatty changes in the supraspinatus muscle and mild fatty changes in the infraspinatus muscle. Other: No other significant findings. IMPRESSION: 1. Postsurgical changes of prior rotator cuff repair. There is tear of the supraspinatus tendon with full-thickness and near full-thickness components as described above. 2. Additional findings as described above.
== END 2025-05-19 23:59 | disposition home or self-care (01) ==
LOC: MRI02 13:35
PROVIDERS: ATTEND Orthopaedic Surgery
DX: S46.012A Strain of muscle(s) and tendon(s) of the rotator cuff of left shoulder, initial encounter (principal); S43.432A Superior glenoid labrum lesion of left shoulder, initial encounter; R60.0 Localized edema; M89.8X1 Other specified disorders of bone, shoulder; M75.42 Impingement syndrome of left shoulder; M75.22 Bicipital tendinitis, left shoulder; X58.XXXA Exposure to other specified factors, initial encounter; M19.012 Primary osteoarthritis, left shoulder; Y93.89 Activity, other specified; Y92.89 Other specified places as the place of occurrence of the external cause; Y99.8 Other external cause status
CPT/HCPCS: 73221

== ENCOUNTER 2025-07-04 10:58 | Outpatient (CLI) | payer MEDICARE, MEDICAID ==
--- NOTE | 2025-07-04 12:14 | RADIOLOGY REPORT ---
Left HIP RADIOGRAPH. CLINICAL INDICATION: LEFT HIP PAIN TECHNIQUE: 4 views of the left hip were obtained. FINDINGS: There is no evidence of fracture, subluxation or dislocation. Moderate left hip osteoarthritis. The bony mineralization is normal.No radiopaque foreign body is identified. IMPRESSION: 1. Moderate left hip osteoarthritis.
== END 2025-07-04 23:59 | disposition home or self-care (01) ==
LOC: RAD 10:58
PROVIDERS: ATTEND Nurse Practitioner Family
DX: M16.12 Unilateral primary osteoarthritis, left hip (principal); M25.552 Pain in left hip
CPT/HCPCS: 73502